=== PATIENT | female | born 1960 | race African-American/Black ===

== ENCOUNTER → 2018-11-30 | Day surgery (SDC) | payer OTHER ==
[~2018-11-30] MED LIST: ACETAMINOPHEN325 M1 PO; ADULT LOW DOSE81 MG PO; CLEOCIN HCL300 MG PO; NITROGLYCERIN0.4 MG SL; NORCO 5-325 TA1 EACH PO; SIMVASTATIN40 MG PO; VICODIN 5-5001 EACH PO
--- NOTE | ~2018-11-30 | OP ---
[address] [address] OPERATIVE REPORT Name: GENE KELLY Room: [facility].#: [id number] Admission: 11/30/18 Attend Phys: Risa Queen DO Discharge: Date of : 62 Report #: [id number] THIS REPORT FOR: //name// CC: Kyle Queen DATE OF SERVICE: 11/30/2018 PREOPERATIVE DIAGNOSIS: Left shoulder mass. POSTOPERATIVE DIAGNOSIS: Left shoulder mass. SURGEON: Dr. Risa Queen. ANESTHESIA: General endotracheal. PROCEDURE: Excision of left shoulder mass (9 x 5.5 x 1.8 cm). SPECIMENS: Left shoulder mass. ESTIMATED BLOOD LOSS: 5 mL. COMPLICATIONS: None. INDICATIONS FOR PROCEDURE: The patient is a 58-year-old female, who was seen and evaluated in general surgery clinic for evaluation of a left anterior shoulder mass that has been present for several years. The patient states it was becoming increasing in size and was causing intermittent discomfort. The patient was explained the procedure including risks, benefits, and alternatives. All questions were answered to patient's satisfaction. Informed consent was obtained. DESCRIPTION OF PROCEDURE: The patient was brought back to the operating room and placed in the supine position. General anesthesia was induced. SCDs were placed on bilateral lower extremities and prophylactic antibiotics were administered. Next, after a timeout was performed and the area was prepped and draped in the usual sterile fashion. A 5 cm incision was created in an oblique fashion on the anterior left shoulder using the lines of Langerhans. Dissection was carried down through subcutaneous tissues using Bovie cautery. Next, with gentle pressure, a subcutaneous mass was eviscerated through the wound consistent with a likely lipoma. Dissection was carried circumferentially around the mass with the clear areolar tissue. The base of the mass was excised circumferentially, so the mass was removed in its entirety. The mass measured 9 x 5.5 x 1.8 cm in greatest dimension. Specimen was passed off for pathology. The wound was then irrigated. Local anesthetic was infiltrated into the subcutaneous tissues. Hemostasis was noted to be excellent[place] [address] OPERATIVE REPORT Name: GENE KELLY [id number] Admission: 11/30/18 Attend Phys: Risa Queen DO Discharge: Date of : 62 Report #: [id number] reapproximated with 3-0 Vicryl in interrupted deep dermal fashion and 4-0 Monocryl was used in a subcuticular fashion to close the skin. Dermabond was applied for sterile dressing. All sponge and instrument count was reported as correct at the end of the case. The patient tolerated the procedure well without any complication. She was awakened from anesthesia in the operating room and taken to the PACU in stable condition for further recovery. By: [id number] Queen DO /rolan
[2018-11-30 06:30] LABS: HEMATOCRIT 37.5 % (37.0-47.0); HEMOGLOBIN 12.2 gm/dL (12.0-15.0); MCH 26.9 pg (26.0-34.0); MCHC 32.6 g/dL (28.0-37.0); MCV 82.5 fL (80.0-100.0); MPV 7.8 fl. (7.2-11.1); RBC 4.55 mil/uL (4.20-5.00); RDW-CV 14.2 % (10.5-14.5); WBC 8.5 thou/uL (4.0-11.0)
[2018-11-30 06:50] LABS: CALCIUM 9.2 mg/dL (8.5-10.1); POTASSIUM 3.7 mmol/L (3.5-5.1)
--- NOTE | 2018-11-30 16:08 | EKG ---
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 11/30/18 1608 [id number] 3 Leon Stacy MD, FACC /EPI
--- NOTE | 2018-12-01 17:07 | PATH ---
[address] [address] PATHOLOGY RPT PROCEDURE Name: GENE KELLY Room: [facility].#: [id number] Admission: 11/30/18 Date of : 62 Discharge: Report #: [id number] Path Case #: [id number] [facility] Accession Number: [id number] . 01 Material submitted: . LEFT SHOULDER MASS . 01 Clinical history: . Lipoma left shoulder, 9 cm x 5.5 cm x 1.8 cm . 02 Diagnosis: Left shoulder mass: - Lipoma. (MICHAEL:dayday; 12/01/2018) MBR/12/01/2018 . 02 Electronically signed: . Joel Fuentes MD, Pathologist NPI- [id number] . 01 Gross description: . The specimen is received in formalin, labeled "Gene Kelly, left shoulder mass" and consists of an encapsulated and focally disrupted segment of yellow-orange adipose tissue measuring 6.0 x 4.3 x 2.5 cm. Sectioning reveals multifocally hemorrhagic cut surfaces. Shelver sections are submitted in A1-A3. (SDY; 11/30/2018) SYU/SYU . 02 Pathologist provided ICD-10: D17.79 . 02 CPT . 467119 Specimen Comment: A courtesy copy of this report has been sent to Specimen Comment: [phone], . Specimen Comment: Report sent to / DR GRAF Performed at: [address], [place], [place] [id number] MD Orlin Boo MD Phone: [phone] Performed at: 02 [facility] [address], [place], [place] [id number] MD Joel Fuentes MD Phone: [phone]
== END | disposition home or self-care (01) ==
LOC: M.SUR 06:07
PROVIDERS: Surgery
DX: D17.22 Benign lipomatous neoplasm of skin and subcutaneous tissue of left arm (principal); Z91.09 Other allergy status, other than to drugs and biological substances; Z79.899 Other long term (current) drug therapy